=== PATIENT | female | born 1980 | race Caucasian/White ===

== ENCOUNTER 2018-09-17 11:22 | Emergency (ER) | payer SELFPAY ==
[~2018-09-17] VITALS: Ht 170.2 cm; Wt 82.4 kg
[2018-09-17 11:33] VITALS: BP 135/63
[2018-09-17] MEDS ORDERED: DEXAMETHASONE 4 MG TABLET ONE (12:37)
[2018-09-17] MEDS ORDERED: DEXAMETHASONE 4 MG TABLET PO ONE (13:00)
== END 2018-09-17 13:14 | disposition home or self-care (01) ==
LOC: ED 13:08
DX: B34.9 Viral infection, unspecified (principal)
CPT/HCPCS: 71046; 99284